=== PATIENT | male | born 1980 | race Caucasian/White ===

== ENCOUNTER 2018-04-03 23:08 | Emergency (ER) | payer SELFPAY ==
[~2018-04-03 23:08] MED LIST: Sodium Chloride 0.9% 1,000 ML BAG ONE
[2018-04-03] MEDS ORDERED: Metoclopramide HCl 10 MG/2 ML VIAL ONE (23:41)
[2018-04-03] MEDS ORDERED: diphenhydrAMINE 50 MG/ML VIAL ONE (23:41)
[2018-04-03 23:44] LABS: #Basophils 0.1 thou/uL (0.0-0.2); #Eosinphils 0.5 thou/uL (0.0-0.7); #Lymphocytes 3.8 thou/uL (1.20-3.40); #Monocytes 0.7 thou/uL (0.11-0.59); #Neutrophils 3.5 thou/uL (1.40-6.50); %Eosinophils 6.1 % (0.0-10.0); %Lymphocytes 44.2 % (21.0-51.0); %Monocytes 8.2 % (0.0-10.0); %Neutrophils 40.5 % (42.0-75.0); Hemoglobin 14.6 g/dL (14.0-18.0); Mean Corpuscular HGB CONC 34.8 g/dL (32.0-36.0); Mean Corpuscular Hemoglobin 31.6 pg (27.0-31.0); Mean Corpuscular Volume 90.7 fl (80.0-94.0); Platelet Count 211 thou/uL (130-400); Red Blood Cell (RBC) Count 4.62 mill/uL (4.70-6.10); White Blood Cell (WBC) Count 8.5 thou/uL (4.8-10.8)
--- NOTE | 2018-04-03 23:47 | CT ---
CT BRAIN WITHOUT CONTRAST: 04/03/18 HISTORY: Headache. COMPARISON: None. FINDINGS: No acute territorial infarct or hemorrhage. No midline shift or mass effect. Ventricular size and ext ra-axial CSF spaces are normal. The calvarium is intact. The paranasal sinuses and mastoids are clear. IMPRESSION: No acute intracranial abnormality. POS: [facility]
[2018-04-03] MEDS ORDERED: Lidocaine 1% 20 ML MDV ONE (23:56)
[2018-04-03 23:59] LABS: ALT (SGPT) 37 U/L (8-55); AST (SGOT) 29 U/L (5-34); Albumin 4.3 g/dL (3.5-5.0); Alkaline Phosphatase 69 U/L (40-150); Anion Gap 17 mmol/L (10-20); BUN (Urea Nitrogen) 12 mg/dL (8.9-20.6); Bilirubin, Total 0.3 mg/dL (0.2-1.2); Calc. Creatinine Clearance 0 mL/min (70-130); Calcium 9.3 mg/dL (7.8-10.44); Carbon Dioxide 23 mmol/L (22-29); Chloride 101 mmol/L (98-107); Estimated GFR-MDRD 90; Globulin 2.6 g/dL (2.4-3.5); Glucose 77 mg/dL (70-105); Potassium 3.8 mmol/L (3.5-5.1); Protein, Total 6.9 g/dL (6.0-8.3); Sodium 137 mmol/L (136-145)
[2018-04-04] MEDS ORDERED: Metoclopramide HCl 10 MG/2 ML VIAL ONE (01:21)
[2018-04-04 02:35] LABS: Color Of CSF Supernatant COLORLESS (Colorless); Tube # 3; Unspun CSF Color COLORLESS (Colorless)
[2018-04-04 02:39] LABS: CSF, Glucose 61 mg/dl (40-70); CSF, Protein 47 mg/dL (15-40)
[2018-04-04 03:04] LABS: CSF Source CSF
[2018-04-04 03:05] LABS: Clarity Clear (Clear); RBC Count - Manual 15 /cumm (None Seen); Tube # 1; WBC/NonHematics Count - Manual 4 /cumm (0-5)
[2018-04-04 03:20] LABS: CSF Source CSF; Clarity Clear (Clear); RBC Count - Manual 0 /cumm (None Seen); Tube # 4; WBC/NonHematics Count - Manual 4 /cumm (0-5)
== END 2018-04-04 01:33 | disposition home or self-care (01) ==
LOC: MADERS 23:08
DX: G43.909 Migraine, unspecified, not intractable, without status migrainosus (principal); F17.210 Nicotine dependence, cigarettes, uncomplicated
CPT/HCPCS: 62270; 70450; 80053; 82945; 84157; 85025; 89051; 96361; 96374; 96375; 96376; J1200; J2001; J2765; J7050